=== PATIENT | female | born 1985 | race Caucasian/White ===

== ENCOUNTER 2020-04-08 03:55 | Inpatient (IN) | payer OTHER ==
[2020-04-08] MEDS ORDERED: Calcium Carbonate 500 MG Tab.Chew PO PRN (19:35)
[2020-04-08] MEDS ORDERED: Sodium Chloride 0.9% 10 ML Syringe FLUSH PRN (19:35)
[2020-04-08] MEDS ORDERED: Nalbuphine 10 MG/ML Syringe IVPUSH PRN (19:35)
[2020-04-08] MEDS ORDERED: Lidocaine 1% 50 ML MDV INJECT ONE (19:35)
[2020-04-08] MEDS ORDERED: Acetaminophen 325 MG Tab PO PRN (19:35)
[2020-04-08] MEDS ORDERED: Ondansetron 4 MG/2 ML SDV IVPUSH PRN (19:35)
[2020-04-08] MEDS ORDERED: Oxytocin/Lactated Ringers 10 UNIT/1,000 ML BAG IV SCH ×2 (19:45)
[2020-04-08] MEDS ORDERED: Lactated Ringers 1,000 ML ONE (19:46)
[2020-04-08] MEDS ORDERED: Oxytocin/Lactated Ringers 10 UNIT/1,000 ML BAG IV ONE (19:47)
[2020-04-08] MEDS: Lactated Ringers 1,000 ML IV SCH (20:01)
--- NOTE | 2020-04-08 20:33 | PCM.LDHP ---
L&D History of Present Illness - General Date of Service: 04/08/20 Admit Problem/Dx: Patient Status Order with Admit Dx/Problem 04/08/20 19:35 Patient Status [ADT] Routine Admission Diagnosis/Problem Admission Diagnosis/Problem 04/08/20 20:21 Yamila is a 34-year-old 5 para 2021 white female admitted at 39-2/7 weeks gestational age with an SIMÓN of 04/13/2020 for induction of labor. Source of Information: Patient History Limitations: Reports: No Limitations - History of Present Illness Introduction:: Yamila is a 34-year-old 5 para 2021 white female admitted at 39-2/7 weeks gestational age with an SIMÓN of 04/13/2020 for induction of labor.On last evaluation clinic her cervix was 2 cm dilated, 80% effaced, posterior, very soft, -3 station and a cephalic presentation. The procedure of induction of labor, risks, benefits, alternatives of natural onset of labor DISCUSSED in detail patient. She appeared to understand, wish to proceed. 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 Patient is not using any control at conception. She had menarche at age 17. Cycles every 28 days. LMP was relatively certain and cycles are very regular. Past obstetric history includes the followin. Female infant born 12/14/2011 at 40 weeks gestational age after 26 hour labor. 7 lbs. 4 oz. born via normal spontaneous vaginal delivery. She had an epidural for labor analgesia. She is born at [facility]. Child's name is Meghan 2. Female infant born 05/23/2013 at 39 weeks gestational age after 16 hours later. Baby weighed 7 lbs. 1 oz. and was born via normal spontaneous vaginal delivery. She had an epidural analgesia for pain control. She is delivered at [facility]. Child's name is Georgie Joaquin. course. Patient was initially seen for this on 08/23/2019 at 6 and 27 weeks' gestational age. Ultrasound at that time correlated well with LMP of 07/08/2019 giving a final SIMÓN of 04/13/2020. The patient was seen on a regular basis throughout the . Her weight gain was from a pregravid weight of 194.8 pounds up to 206 pounds for approximately an 8 pound weight gain. Her vital signs remained stable throughout the course and fundal height growth was appropriate. Patient has had an ultrasound showing a dominant left renal pelvis. Recommendation by radiology was to follow-up after delivery with ultrasound. She is group B strep negative. She is gestational diabetic and has been controlled with diet and glyburide therapy. 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 She has had weekly biophysical profiles due to the gestational diabetes on meds diagnosis. She plans to breast-feed. She declined genetic evaluation. Patient has had 2 miscarriages. Laboratory testing and shows blood to be O+ with negative amylase screen. Hemoglobin is 12.8 g/dL her first visit and platelets were 334,000. She is rubella immune. RPR is nonreactive. Urine culture was negative. Hepatitis B surface antigen and HIV assays were both negative. Chlamydia and gonorrhea tests were both negative. Second trimester labs showed hemoglobin of 12.2 g/dL and platelets at 258,000. Her diabetic screening test was elevated at 205. RPR on 01/08/2020 was nonreactive. Strep screen is negative. Allergies: 1. Milk which causes her to cough 2. Trees which give her headache Patient has no known drug allergies. Medications: 1. Claritin 10 mg by mouth daily when necessary for allergies 2 vitamins 1 by mouth daily 3. Probiotic digestive support oral capsule1 capsule daily 4. Flonase allergy relief nasal suspension 1-2 sprays in each nostril once daily when necessary for allergies 5. Folate tablets daily 6. Glyburide 1.25 mg orally daily Past medical history: 1. Gestational diabetes with last 2. Miscarriage 2 first trimester 3. Normal spontaneous vaginal delivery 2. Past surgical history: Unremarkable Family history: Mother is alive and well with history of breast cancer and lung cancer. She had a partial pneumonectomy. She had radiation therapy at age 66. Father is alive and well but with a history of diabetes and skin cancer on his face. 2 brothers alive and well. Maternal grandmother is alive at age 88. Maternal grandfather is alive but has a history of prostate cancer and history of thyroid cancer. Paternal grandmother is secondary diabetes and obesity. Paternal grandfather secondary to diabetes and heart disease. Patient has no known family history of bleeding or clotting disorders, anesthesia related issues or -related issues. Social history: Patient is . She lives in [place], [place]. 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 She is a college graduate. Her name is Laurie. She denies any significant loss of alcohol, drugs or tobacco. Review of systems: In general patient has no complaints. He has been active. She had some contractions last evening but these stopped spontaneously. Skin: Negative Lungs: No infectious symptoms or shortness of breath Cardiovascular: No chest pain or exercise intolerance Breasts: No lumps, changes in size, pain, dimpling, discharge or axillary or supraclavicular concerns. GI: Negative : Body habitus changes related to . Musculoskeletal: Negative Neurological: Negative In general the patient is well-developed, well-nourished, pleasant female of stated age in no acute distress. On last evaluation in clinic on 04/02/2020 patient's blood pressures 116/82 weight was 206 with pregravid weight 194.8. Height is 5 feet 3. Prepregnancy body mass index is 32.8. heart rate at that time was 144. Skin is warm dry without lesions. HEENT, neck and back within normal limits. Lungs are clear with good breath sounds in all lung martinez. Cardiovascular exam shows regular and rhythm without murmurs. Abdomen is gravid with fundal height of 39 cm. Baby in vertex presentation by Fawad's.. Genital exam per digital evaluation shows cervix to be 2+ centimeters, 80% effaced, posterior to mid position, very soft, -3 station but well applied to the cervix. Artificial rupture membranes undertaken with resultant clear amniotic fluid.. Extremities and neurological exam are grossly within normal limits. - Related Data Allergies/Adverse Reactions: Allergies Allergy/AdvReac Type Severity Reaction Status Date / Time No Known Allergies Allergy Verified 05/22/15 07:41 Home Medications: Home Meds Docusate Sodium [Colace] 100 mg PO DAILY 05/22/15 [History] Pnv with Ca,No.71/Iron/Fa [ Vitamin Tablet] 1 tab PO DAILY 05/22/15 [History] Past Medical History - Past Health History Medical/Surgical History: Denies Medical/Surgical History H&P Review of Systems - Review of Systems: Review Of Systems: See Below L&D Exam - Exam Exam: See Below - Patient Data Lab Results Last 24 hrs: Laboratory Results - last 24 hr 04/08/20 Range/Units 19:47 WBC 8.02 (3.98-10.04) K/mm3 RBC 3.88 L (3.98-5.22) M/mm3 Hgb 10.7 L D (11.2-15.7) gm/dl Hct 32.7 L (34.1-44.9) % MCV 84.3 D (79.4-94.8) fl MCH 27.6 (25.6-32.2) pg MCHC 32.7 (32.2-35.5) g/dl RDW Std Deviation 40.2 (36.4-46.3) fL Plt Count 193 (182-369) K/mm3 MPV 12.3 (9.4-12.3) fl Neut % (Auto) 67.6 (34.0-71.1) % Lymph % (Auto) 20.6 (19.3-51.7) % [place] % (Auto) 10.2 (4.7-12.5) % Eos % (Auto) 1.0 (0.7-5.8) Baso % (Auto) 0.2 (0.1-1.2) % Neut # (Auto) 5.42 (1.56-6.13) K/mm3 Lymph # (Auto) 1.65 (1.18-3.74) K/mm3 Phillips # (Auto) 0.82 H (0.24-0.36) K/mm3 Eos # (Auto) 0.08 (0.04-0.36) K/mm3 Baso # (Auto) 0.02 (0.01-0.08) K/mm3 Result Diagrams: 04/08/20 19:47 Problem List Initiated/Reviewed/Updated: Yes Orders Last 24hrs: Active Orders 24 hr Category Date Time Status Patient Status [ADT] Routine ADT 04/08/20 19:35 Active Activity as Tolerated [RC] PFP Care 04/08/20 19:35 Active Communication Order [RC] ASDIRECTED Care 04/08/20 19:35 Active Heart Tones [RC] ASDIRECTED Care 04/08/20 19:36 Active Non Stress Test [RC] PER UNIT ROUTINE Care 04/08/20 19:35 Active Notify Provider [RC] PFP Care 04/08/20 19:35 Active Notify Provider [RC] PRN Care 04/08/20 19:35 Active Peripheral IV Care [RC] . DIRECTED Care 04/08/20 19:36 Active Vital Signs [RC] PER UNIT ROUTINE Care 04/08/20 19:35 Active Regular Diet [DIET] Diet 04/09/20 Breakfast Active RAPID PLASMA REAGIN,RPR [CHEM] Routine Lab 04/08/20 19:47 Received Acetaminophen [Tylenol] Med 04/08/20 19:35 Active 650 mg PO Q4H PRN Calcium Carbonate [Tums] Med 04/08/20 19:35 Active 1,000 mg PO Q2H PRN Lactated Ringers [Ringers, Lactated] 1,000 ml Med 04/08/20 19:45 Active IV ASDIRECTED Nalbuphine [Nubain] Med 04/08/20 19:35 Active 10 mg IVPUSH Q2H PRN Ondansetron [Zofran] Med 04/08/20 19:35 Active 4 mg IVPUSH Q4H PRN Oxytocin/Lactated Ringers [Pitocin in LR 10 Units/1,000 Med 04/08/20 19:45 Active ML] 10 unit in 1,000 ml IV .CONTINUOUS Oxytocin/Lactated Ringers [Pitocin in LR 10 Units/1,000 Med 04/08/20 19:45 Active ML] 10 unit in 1,000 ml IV TITRATE Sodium Chloride 0.9% [Saline Flush] Med 04/08/20 19:35 Active 10 ml FLUSH ASDIRECTED PRN Electronic Heart Tones Ext w TOCO [WOMSER] Oth 04/08/20 19:35 Ordered Routine Electronic Heart Tones Internal [WOMSER] Per Unit Oth 04/08/20 19:35 Ordered Routine Peripheral IV Insertion Adult [OM.PC] Routine Oth 04/08/20 19:35 Ordered Resuscitation Status Routine Resus Stat 04/08/20 19:35 Ordered Medication Orders Acetaminophen (Tylenol) 650 mg PO Q4H PRN PRN Reason: Pain (Mild 1-3) and fever Calcium Carbonate/Glycine (Tums) 1,000 mg PO Q2H PRN PRN Reason: Indigestion Oxytocin/Lactated Ringer's (Pitocin In Lr 10 Units/1,000 Ml) 10 unit in 1,000 mls @ 12 mls/hr IV TITRATE NAHUM; Protocol Oxytocin/Lactated Ringer's (Pitocin In Lr 10 Units/1,000 Ml) 10 unit in 1,000 mls @ 500 mls/hr IV .CONTINUOUS NAHUM Lactated Ringer's (Ringers, Lactated) 1,000 mls @ 100 mls/hr IV ASDIRECTED NAHUM Nalbuphine HCl (Nubain) 10 mg IVPUSH Q2H PRN PRN Reason: Pain Ondansetron HCl (Zofran) 4 mg IVPUSH Q4H PRN PRN Reason: Nausea/Vomiting Sodium Chloride (Saline Flush) 10 ml FLUSH ASDIRECTED PRN PRN Reason: Keep Vein Open Assessment/Plan Comment:: Assessment: 1. 39-2/7 week intrauterine , admitted for elective induction of labor 2. History of gestational diabetes controlled well with glyburide therapy and diet. 3. Group B strep screen negative 4. left renal pelvis prominence. Radiology recommends follow-up renal ultrasound after delivery 5. Risk factors for the include gestational diabetes, obesity 6. Patient plans to breast-feed. 7. Patient desires epidural in labor and delivery. 8. Patient had her Tdap on 02/06/2020. 9. Patient is rubella immune. Plan: 1. Artificial rupture membranes and with Pitocin induction of labor. Procedure, risks, benefits, alternatives of care discussed with patient and her . They appear to understand and wished to proceed. 2. Epidural analgesia per patient desire. 3. From pediatrics concerning left renal pelvis prominence 4. Support breast-feeding decision 5. Anticipate
--- NOTE | 2020-04-08 23:01 | PCM.PREANE ---
Preanesthetic Assessment - Procedure Proposed Procedure: Continuous labor epidural - Anesthesia/Transfusion/Family Hx Anesthesia History: Prior Anesthesia Without Reaction Transfusion History: No Prior Transfusion(s) - Review of Systems General: No Symptoms Pulmonary: No Symptoms Cardiovascular: No Symptoms Gastrointestinal: No Symptoms Neurological: No Symptoms Other: Reports: None - Physical Assessment Vital Signs: Last Vital Signs Temp 98.7 F 04/08/20 19:35 Pulse 82 04/08/20 19:35 Resp 16 04/08/20 19:35 BP 133/89 04/08/20 19:35 Pulse Ox 98 04/08/20 19:35 Height: 1.6 m Weight: 93.44 kg ASA Class: 2 Mental Status: Alert & Oriented x3 Airway Class: Mallampati = 2 Dentition: Reports: Normal Dentition, Bratenahl(s) Thyro-Mental Finger Breadths: 3 Mouth Opening Finger Breadths: 3 ROM/Head Extension: Full Lungs: Clear to Auscultation, Normal Respiratory Effort Cardiovascular: Regular Rate, Regular Rhythm - Lab Values: Laboratory Last Values WBC 8.02 K/mm3 (3.98-10.04) 04/08/20 19:47 RBC 3.88 M/mm3 (3.98-5.22) L 04/08/20 19:47 Hgb 10.7 gm/dl (11.2-15.7) L D 04/08/20 19:47 Hct 32.7 % (34.1-44.9) L 04/08/20 19:47 MCV 84.3 fl (79.4-94.8) D 04/08/20 19:47 MCH 27.6 pg (25.6-32.2) 04/08/20 19:47 MCHC 32.7 g/dl (32.2-35.5) 04/08/20 19:47 RDW Std Deviation 40.2 fL (36.4-46.3) 04/08/20 19:47 Plt Count 193 K/mm3 (182-369) 04/08/20 19:47 MPV 12.3 fl (9.4-12.3) 04/08/20 19:47 Neut % (Auto) 67.6 % (34.0-71.1) 04/08/20 19:47 Lymph % (Auto) 20.6 % (19.3-51.7) 04/08/20 19:47 [place] % (Auto) 10.2 % (4.7-12.5) 04/08/20 19:47 Eos % (Auto) 1.0 (0.7-5.8) 04/08/20 19:47 Baso % (Auto) 0.2 % (0.1-1.2) 04/08/20 19:47 Neut # (Auto) 5.42 K/mm3 (1.56-6.13) 04/08/20 19:47 Lymph # (Auto) 1.65 K/mm3 (1.18-3.74) 04/08/20 19:47 [place] # (Auto) 0.82 K/mm3 (0.24-0.36) H 04/08/20 19:47 Eos # (Auto) 0.08 K/mm3 (0.04-0.36) 04/08/20 19:47 Baso # (Auto) 0.02 K/mm3 (0.01-0.08) 04/08/20 19:47 - Allergies Allergies/Adverse Reactions: Allergies Allergy/AdvReac Type Severity Reaction Status Date / Time No Known Allergies Allergy Verified 04/08/20 21:39 - Acknowledgements Anesthesia Type Planned: Epidural Pt an Appropriate Candidate for the Planned Anesthesia: Yes Alternatives and Risks of Anesthesia Discussed w Pt/Guardian: Yes Pt/Guardian Understands and Agrees with Anesthesia Plan: Yes PreAnesthesia Questionnaire - Past Health History Medical/Surgical History: Denies 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: Endocrine/Metabolic History: Reports: Diabetes, Gestational - SUBSTANCE USE Smoking Status *Q: Never Smoker Second Hand Smoke Exposure: No Recreational Drug Use History: No - HOME MEDS Home Medications: Home Meds Docusate Sodium [Colace] 100 mg PO DAILY 05/22/15 [History] Pnv with Ca,No.71/Iron/Fa [ Vitamin Tablet] 1 tab PO DAILY 05/22/15 [History] Fluticasone Propionate [Flonase] 1 squirt DAILY 04/08/20 [History] Lansoprazole [Prevacid] 30 mg PO DAILY 04/08/20 [History] Loratadine [Claritin] 10 mg PO DAILY 04/08/20 [History] glyBURIDE [Micronase] 1.25 mg PO DAILY 04/08/20 [History] - CURRENT (IN HOUSE) MEDS Current Meds: Current Medications Acetaminophen (Tylenol) 650 mg PO Q4H PRN PRN Reason: Pain (Mild 1-3) and fever Calcium Carbonate/Glycine (Tums) 1,000 mg PO Q2H PRN PRN Reason: Indigestion Oxytocin/Lactated Ringer's (Pitocin In Lr 10 Units/1,000 Ml) 10 unit in 1,000 mls @ 12 mls/hr IV TITRATE NAHUM; Protocol Last Admin: 04/08/20 20:30 Dose: 2 munits/min, 12 mls/hr Documented by: Oxytocin/Lactated Ringer's (Pitocin In Lr 10 Units/1,000 Ml) 10 unit in 1,000 mls @ 500 mls/hr IV .CONTINUOUS NAHUM Lactated Ringer's (Ringers, Lactated) 1,000 mls @ 100 mls/hr IV ASDIRECTED NAHUM Last Admin: 04/08/20 20:01 Dose: 100 mls/hr Documented by: Nalbuphine HCl (Nubain) 10 mg IVPUSH Q2H PRN PRN Reason: Pain Ondansetron HCl (Zofran) 4 mg IVPUSH Q4H PRN PRN Reason: Nausea/Vomiting Sodium Chloride (Saline Flush) 10 ml FLUSH ASDIRECTED PRN PRN Reason: Keep Vein Open Discontinued Medications Lactated Ringer's (Ringers, Lactated) Confirm Administered Dose 1,000 mls @ as directed .ROUTE .STK-MED ONE Stop: 04/08/20 19:47 Oxytocin/Lactated Ringer's (Pitocin In Lr 10 Units/1,000 Ml) Confirm Administered Dose 10 unit in 1,000 mls @ as directed IV .STK-MED ONE Stop: 04/08/20 19:48 Lidocaine HCl (Xylocaine 1%) 50 ml INJECT ONETIME ONE Stop: 04/08/20 19:36
[2020-04-08] MEDS ORDERED: Bupivacaine/fentaNYL/NS 100 ML Bag EPIDUR PRN (23:20)
[2020-04-08] MEDS ORDERED: diphenhydrAMINE 50 MG/ML SDV IVPUSH PRN (23:20)
[2020-04-08] MEDS ORDERED: ePHEDrine 50 MG/ML SDV IVPUSH PRN (23:20)
[2020-04-08] MEDS ORDERED: fentaNYL 100 MCG/2 ML SDV EPIDUR PRN (23:20)
[2020-04-09] MEDS ORDERED: Bupivacaine 0.25% 10 ML SDV ONE
[2020-04-09] MEDS ORDERED: Lidocaine 1.5% with EPINEPHrine 1:200,000 5 ML Amp ONE
[2020-04-09] MEDS: Lactated Ringers 1,000 ML IV SCH (00:10)
--- NOTE | 2020-04-09 04:20 | PCM.SN.2 ---
- Free Text/Narrative Note: Yamila is a 34-year-old 5 para 2021 white female admitted at 39-2/7 weeks gestational age with an SIMÓN of 04/13/2020 for induction of labor.Yamila underwent artificial rupture membranes/Pitocin induction of labor. She had regular progression of labor. She had an epidural for labor analgesia. She became completely dilated at approximately 0330 hrs on 04/09/2020. At 0358 hrs. the patient delivered a viable, paz, male with Apgars of 8 and 9, a weight of 7 pounds 12.2 ounces (3520 g), a length of 21.5 inches in a direct occiput anterior position over an intact perineum. Vigorous placed on mom's abdomen. Nose and mouth were bulb suctioned and the baby was dried. Pitocin was increased to 500 mL per hour per protocol to facilitate increase in uterine tone and decreased likelihood of bleeding. The umbilical cord was allowed to pulsate 2-3 minutes and was clamped 2 and cut by the baby's father Laurie. The umbilical cord had 3 vessels. The placenta delivered in a Schult presentation at 0402 hrs. It appeared intact, complete and was discarded per patient desire. Estimated blood loss was 200 mL. The perineum and that vaginal epithelium was intact and no suturing was required. Patient plans to breast-feed. Condition: Good
[2020-04-09] MEDS ORDERED: Witch Hazel Medicated Pads 40/Jar TOP PRN (05:05)
[2020-04-09] MEDS ORDERED: Benzocaine/Menthol 20%-0.5% Spray 56 GM Canister TOP PRN (05:05)
[2020-04-09] MEDS ORDERED: Docusate Sodium 100 MG Cap PO PRN (05:05)
[2020-04-09] MEDS: Ibuprofen 600 MG Tab PO PRN ×4 (06:42→19:51)
--- NOTE | 2020-04-09 10:47 | PCM48HPAN ---
Post Anesthesia Note - EVALUATION WITHIN 48HRS OF ANESTHETIC Vital Signs in Normal Range: Yes Patient Participated in Evaluation: Yes Respiratory Function Stable: Yes Airway Patent: Yes Cardiovascular Function Stable: Yes Hydration Status Stable: Yes Pain Control Satisfactory: Yes Nausea and Vomiting Control Satisfactory: Yes Mental Status Recovered: Yes Vital Signs: Last Vital Signs Temp 37.1 C 04/08/20 19:35 Pulse 68 04/09/20 05:01 Resp 16 04/08/20 19:35 BP 110/66 04/09/20 05:01 Pulse Ox 97 04/08/20 22:16
[2020-04-09] MEDS: Prenatal Multivitamin with Calcium/Folic Acid/Iron Tab PO SCH (12:00)
[2020-04-09] MEDS: Acetaminophen 325 MG Tab PO PRN (20:59)
[2020-04-10] MEDS: Ibuprofen 600 MG Tab PO PRN ×4 (00:16→21:57)
--- NOTE | 2020-04-10 06:13 | PCM.SN.2 ---
- Free Text/Narrative Note: note: Patient is doing well in the period. Minimal lochia, voiding well, ambulated without problems. Nursing without concerns. Patient is afebrile, vital signs are stable Abdomen is flat, soft, uterus is below the umbilicus and is firm and nontender. Legs are nontender. Assessment: recovery going well. Plan: Routine care. Patient be discharged home within the next 24-48 hours possibly even later today.
[2020-04-10] MEDS: Acetaminophen 325 MG Tab PO PRN (11:09)
[2020-04-10] MEDS: Prenatal Multivitamin with Calcium/Folic Acid/Iron Tab PO SCH (12:34)
--- NOTE | 2020-04-11 06:14 | PCM.DCSUM1 ---
Discharge Summary - Hospital Course Free Text/Narrative:: Yamila is a 34-year-old 5 para 2021 white female admitted at 39-2/7 weeks gestational age with an SIMÓN of 04/13/2020 for induction of labor.Yamila underwent artificial rupture membranes/Pitocin induction of labor. She had regular progression of labor. She had an epidural for labor analgesia. She became completely dilated at approximately 0330 hrs on 04/09/2020. At 0358 hrs. the patient delivered a viable, paz, male with Apgars of 8 and 9, a weight of 7 pounds 12.2 ounces (3520 g), a length of 21.5 inches in a direct occiput anterior position over an intact perineum. Vigorous placed on mom's abdomen. Nose and mouth were bulb suctioned and the baby was dried. Pitocin was increased to 500 mL per hour per protocol to facilitate increase in uterine tone and decreased likelihood of bleeding. The umbilical cord was allowed to pulsate 2-3 minutes and was clamped 2 and cut by the baby's father Laurie. The umbilical cord had 3 vessels. The placenta delivered in a Schult presentation at 0402 hrs. It appeared intact, complete and was discarded per patient desire. Estimated blood loss was 200 mL. The perineum and that vaginal epithelium was intact and no suturing was required. Patient plans to breast-feed. patient is done well. She is going well, has minimal lochia, is voiding without concerns and is nursing without problems. She is desiring discharge home. Condition: Good Diagnosis: Stroke: No - Discharge Data Discharge Date: 04/11/20 Discharge Disposition: Home, Self-Care 01 Condition: Good - Referral to Home Health Primary Care Physician: Vince Basurto MD - Patient Instructions Driving: May Drive Today Showering/Bathing: May Shower (May take a bath) Notify Provider of: Fever, Increased Pain, Swelling and Redness, Nausea and/or Vomiting - Discharge Plan Home Medications: Home Meds Docusate Sodium [Colace] 100 mg PO DAILY 05/22/15 [History] Pnv with Ca,No.71/Iron/Fa [ Vitamin Tablet] 1 tab PO DAILY 05/22/15 [History] Fluticasone Propionate [Flonase] 1 squirt DAILY 04/08/20 [History] Loratadine [Claritin] 10 mg PO DAILY 04/08/20 [History] Acetaminophen [Tylenol] 650 mg PO Q4H PRN tablet 04/11/20 [Rx] Ibuprofen [Motrin] 600 mg PO Q4H PRN tablet 04/11/20 [Rx] Referrals: Vince Basurto MD [Primary Care Provider] - (Return to clinicDr. Basurto2 weeks) - Discharge Summary/Plan Comment DC Time >30 min.: No Discharge Summary/Plan Comment: Discharge instructions: 1. Discharge home 2. Diet, activity and follow-up discussed with patient. Recommend nursing diet with increased calories and calcium. 3. Precautions given concern increased pain, bleeding, temperature, signs/symptoms of DVT/PE. 4. Medications per home medication was printed, discussed with and given to the patient. 5. Return to clinic-Dr. Basurto[facility] in 2 weeks. Diagnosis: Term -delivered Condition: Good - Patient Data Vitals - Most Recent: Last Vital Signs Temp 36.6 C 04/11/20 04:48 Pulse 78 04/11/20 04:48 Resp 15 04/11/20 04:48 BP 110/80 04/11/20 04:48 Pulse Ox 100 04/11/20 04:48 Weight - Most Recent: 93.44 kg Med Orders - Current: Current Medications Acetaminophen (Tylenol) 650 mg PO Q4H PRN PRN Reason: mild pain or fever Last Admin: 04/10/20 11:09 Dose: 650 mg Documented by: Benzocaine/Menthol (Dermoplast Pain Relief [place]) 0 gm TOP ASDIRECTED PRN PRN Reason: Perineal Comfort Measure Docusate Sodium (Colace) 100 mg PO BID PRN PRN Reason: Constipation Last Admin: 04/10/20 12:30 Dose: 100 mg Documented by: Ibuprofen (Motrin) 600 mg PO Q4H PRN PRN Reason: Mild pain or fever Last Admin: 04/10/20 21:57 Dose: 600 mg Documented by: Prenat Multivit/Reconciliation Coordinator/Iron/Folic Ac ( Plus Iron) 1 each PO DAILY NAHUM Last Admin: 04/10/20 12:34 Dose: 1 each Documented by: Demarcus Fall ([facility]) 1 pad TOP ASDIRECTED PRN PRN Reason: Perineal Comfort Measure Last Admin: 04/10/20 12:28 Dose: 1 tub Documented by: Discontinued Medications Acetaminophen (Tylenol) 650 mg PO Q4H PRN PRN Reason: Pain (Mild 1-3) and fever Bupivacaine HCl (Sensorcaine-Mpf 0.25%) 10 ml .ROUTE .STK-MED ONE Stop: 04/09/20 00:01 Calcium Carbonate/Glycine (Tums) 1,000 mg PO Q2H PRN PRN Reason: Indigestion Diphenhydramine HCl (Benadryl) 25 mg IVPUSH Q6H PRN PRN Reason: pruritis Ephedrine Sulfate (Ephedrine Sulfate) 5 mg IVPUSH ASDIRECTED PRN PRN Reason: Hypotension Fentanyl (Sublimaze) 100 mcg EPIDUR Q3H PRN PRN Reason: Pain Last Admin: 04/09/20 00:12 Dose: 100 mcg Documented by: Fentanyl/Bupivacaine HCl (Fentanyl/Bupivacaine/Ns 2 Mcg-0.125% 100 Ml) 100 ml EPIDUR ASDIRECTED PRN PRN Reason: Pain Last Admin: 04/09/20 00:13 Dose: 100 ml Documented by: Oxytocin/Lactated Ringer's (Pitocin In Lr 10 Units/1,000 Ml) 10 unit in 1,000 mls @ 12 mls/hr IV TITRATE NAHUM; Protocol Last Titration: 04/09/20 03:05 Dose: 10 munits/min, 60 mls/hr Documented by: Oxytocin/Lactated Ringer's (Pitocin In Lr 10 Units/1,000 Ml) 10 unit in 1,000 mls @ 500 mls/hr IV .CONTINUOUS NAHUM Lactated Ringer's (Ringers, Lactated) 1,000 mls @ 100 mls/hr IV ASDIRECTED NAHUM Last Admin: 04/09/20 00:10 Dose: 100 mls/hr Documented by: Lactated Ringer's (Ringers, Lactated) Confirm Administered Dose 1,000 mls @ as directed .ROUTE .STK-MED ONE Stop: 04/08/20 19:47 Last Admin: 04/08/20 23:42 Dose: Not Given Documented by: Oxytocin/Lactated Ringer's (Pitocin In Lr 10 Units/1,000 Ml) Confirm Administered Dose 10 unit in 1,000 mls @ as directed IV .STK-MED ONE Stop: 04/08/20 19:48 Last Admin: 04/08/20 23:42 Dose: Not Given Documented by: Lidocaine HCl (Xylocaine 1%) 50 ml INJECT ONETIME ONE Stop: 04/08/20 19:36 Lidocaine/Epinephrine (Xylocaine-Mpf 1.5% W/Epinephrine 1:200,000) 5 ml .[address]OUTE .[facility]-MED ONE Stop: 04/09/20 00:01 Nalbuphine HCl (Nubain) 10 mg IVPUSH Q2H PRN PRN Reason: Pain Ondansetron HCl (Zofran) 4 mg IVPUSH Q4H PRN PRN Reason: Nausea/Vomiting Last Admin: 04/09/20 01:20 Dose: 4 mg Documented by: Sodium Chloride (Saline Flush) 10 ml FLUSH ASDIRECTED PRN PRN Reason: Keep Vein Open
[2020-04-11] MEDS: Prenatal Multivitamin with Calcium/Folic Acid/Iron Tab PO SCH (09:24)
[2020-04-11] MEDS: Ibuprofen 600 MG Tab PO PRN (09:24)
[2020-04-11 10:01] VITALS: BP 114/69; PULSE 74
== END 2020-04-11 12:15 | disposition home or self-care (01) | DRG 807 ==
LOC: JD.OB 03:55 → OBSVTOIN 04-09 03:55 → JD.OB 04-09 03:56
PROVIDERS: ADMIT Obstetrics & Gynecology; ATTEND Obstetrics & Gynecology
PROC: 10E0XZZ Delivery of Products of Conception, External Approach (ICD-10-PCS; principal; 2020-04-09)
PROC: 10907ZC Drainage of Amniotic Fluid, Therapeutic from Products of Conception, Via Natural or Artificial Opening (ICD-10-PCS; 2020-04-09)
PROC: 3E033VJ Introduction of Other Hormone into Peripheral Vein, Percutaneous Approach (ICD-10-PCS; 2020-04-09)
PROC: 3E0R3BZ Introduction of Anesthetic Agent into Spinal Canal, Percutaneous Approach (ICD-10-PCS; 2020-04-09)
PROC: 00HU33Z Insertion of Infusion Device into Spinal Canal, Percutaneous Approach (ICD-10-PCS; 2020-04-09)
DX: O80 Encounter for full-term uncomplicated delivery (principal); Z37.0 Single live birth; Z3A.39 39 weeks gestation of pregnancy; Z11.59 Encounter for screening for other viral diseases
CPT/HCPCS: 01967; 36415; 51702; 59025; 59409; 85025; 86592; A9270-GY; J2405; J2590; J3010; J3490; J7120; U0002